=== PATIENT | female | born 1975 | race Caucasian/White ===

== ENCOUNTER 2021-12-21 21:34 | Emergency (ER) | payer SELFPAY ==
[2021-12-21 21:44] VITALS: TEMP 98.3; BMI 25.2
[2021-12-21] MEDS ORDERED: ONDANSETRON 4 MG/2 ML VIAL IVPB ONE (22:08)
[2021-12-21] MEDS ORDERED: ACETAMINOPHEN 1000 MG/100 ML BAG IVPB ONE (22:08)
[2021-12-21] MEDS ORDERED: SODIUM CHLORIDE 0.9% 500 ML INFUS.BAG IV ONE (22:08)
[2021-12-21] MEDS ORDERED: FAMOTIDINE 20 MG/50 ML IVPB 20 MG/50 ML MG IVPB ONE (22:09)
[2021-12-21] MEDS ORDERED: MAG HYDROX/AL HYDROX/SIMETH 30 ML UNIT-DOSE CUP PO ONE (22:09)
[2021-12-21] MEDS ORDERED: DEXAMETHASONE SOD PHOSPHATE 10 MG/1 ML VIAL IVPUSH ONE (22:12)
[2021-12-21 22:58] LABS: BASO % 0.7 % (0-2.0); EOS % 1.2 % (0-4.5); HEMATOCRIT 37.8 % (32.4-45.2); HEMOGLOBIN 12.8 GM/dL (10.7-15.3); LYMPH % 5.7 % (8-40); MCH 29.9 pg (25.7-33.7); MCHC 33.9 g/dl (32.0-36.0); MEAN CELL VOLUME 88.3 fl (80-96); MEAN PLT VOLUME 8.5 fl (7.5-11.1); MONO % 7.3 % (3.8-10.2); NEUT % 85.1 % (42.8-82.8); PLATELET COUNT 221 10^3/uL (134-434); RBC 4.28 M/mm3 (3.60-5.2); RDW 13.2 % (11.6-15.6); WHITE BLOOD COUNT 11.7 K/mm3 (4.0-10.0)
[2021-12-21 23:11] LABS: CALCIUM 8.6 mg/dL (8.5-10.1)
[2021-12-21 23:12] LABS: ALBUMIN 3.6 g/dl (3.4-5.0); BLOOD UREA NITROGEN 21.1 mg/dL (7-18)
[2021-12-21 23:14] LABS: CREATININE 0.6 mg/dL (0.55-1.3)
[2021-12-21 23:16] LABS: BILIRUBIN,TOTAL 0.2 mg/dL (0.2-1); TOT PROT 7.1 g/dl (6.4-8.2)
[2021-12-21] MEDS ORDERED: ACETAMINOPHEN INJECTION 100 ML IVPB ONE (23:39)
[2021-12-21] MEDS ORDERED: MAG HYDROX/AL HYDROX/SIMETH 30 ML UNIT-DOSE CUP ONE (23:40)
[2021-12-21] MEDS ORDERED: ONDANSETRON 4 MG/2 ML VIAL ONE (23:40)
[2021-12-21] MEDS ORDERED: FAMOTIDINE 10 MG/ML VIAL IVPB ONE (23:41)
[2021-12-22 00:42] VITALS: BP 113/75
[2021-12-22] MEDS ORDERED: SUCRALFATE 1 GM TABLET (FP) PO ONE (00:48)
[2021-12-22] MEDS ORDERED: ACETAMINOPHEN 1000 MG/100 ML BAG IVPB ONE (00:50)
[2021-12-22] MEDS ORDERED: SUCRALFATE 1 GM TABLET (FP) ONE (00:58)
[2021-12-22 01:07] VITALS: PULSE 79
== END 2021-12-22 01:30 | disposition home or self-care (01) ==
LOC: JER 21:34
PROC: 3E033GC Introduction of Other Therapeutic Substance into Peripheral Vein, Percutaneous Approach (ICD-10-PCS; principal; 2021-12-21)
DX: R10.13 Epigastric pain (principal); T78.1XXA Other adverse food reactions, not elsewhere classified, initial encounter; R11.2 Nausea with vomiting, unspecified
CPT/HCPCS: 36415; 80053; 83690; 84703; 85025; 93005; 93010; 99284-25